=== PATIENT | male | born 1965 | race Caucasian/White ===

== ENCOUNTER 2020-07-30 15:55 | Outpatient (CLI) | payer OTHER ==
[~2020-07-30 15:55] MED LIST: CIPRO500 MG PO; CLOPIDOGREL BIS75 MG PO; COZAAR25 MG; TAMSULOSIN HCL0.4 MG PO
== END 2020-07-30 16:08 | disposition home or self-care (01) ==
LOC: RAD 15:55
PROVIDERS: ATTEND Internal Medicine Cardiovascular Disease
DX: R07.89 Other chest pain (principal); I10 Essential (primary) hypertension

== ENCOUNTER 2022-09-19 18:59 | Emergency (ER) | payer OTHER ==
[~2022-09-19] VITALS: Ht 185.4 cm; Wt 113.4 kg
[2022-09-19] MEDS ORDERED: CIALIS5 MG (19:10)
[2022-09-19] MEDS ORDERED: TENORMIN25 MG (19:10)
[2022-09-19] MEDS ORDERED: PAXIL20 MG (19:10)
[2022-09-19] MEDS ORDERED: ATORVASTATIN CA20 MG (19:10)
[2022-09-19] MEDS ORDERED: ATACAND16 MG (19:11)
== END 2022-09-19 21:02 | disposition home or self-care (01) ==
LOC: ER 18:59
DX: J06.9 Acute upper respiratory infection, unspecified (principal); Z20.822 Contact with and (suspected) exposure to COVID-19; Z88.6 Allergy status to analgesic agent